=== PATIENT | male | born 1970 | race American Indian/Alaskan Native ===

== ENCOUNTER 2021-10-21 08:45 | Day surgery (SDC) | payer OTHER ==
[2021-10-20 12:04] VITALS: BMI 28.1
[2021-10-21 11:14] VITALS: TEMP 97.7
[2021-10-21 11:27] VITALS: BP 127/73; PULSE 76
== END 2021-10-21 11:42 | disposition home or self-care (01) ==
LOC: FASU-ENDO 08:45
PROVIDERS: ATTEND Internal Medicine Gastroenterology
PROC: 0DJD8ZZ Inspection of Lower Intestinal Tract, Via Natural or Artificial Opening Endoscopic (ICD-10-PCS; principal; 2021-10-21 10:55)
DX: Z12.11 Encounter for screening for malignant neoplasm of colon (principal)